=== PATIENT | male | born 1960 | race Caucasian/White ===

== ENCOUNTER 2019-01-11 10:27 | Inpatient (IN) | payer BC ==
[~2019-01-11] VITALS: Ht 177.8 cm; Wt 108.9 kg
[2019-01-11 10:35] VITALS: Ht 177.8 cm; Wt 108.9 kg
--- NOTE | 2019-01-11 10:35 | NUR ---
RECEIVED PATIENT TO ROOM 9, BIBA PER REPORT PATIENT C/O CHEST PAIN 2 HOURS AGO WHILE DRIVING. NITRO X 2, ZOFRAN 4 MG GIVEN IN THE FIELD, HEPLOCK ON RIGHT FOREARM 20 GAUGE INITIATED IN THE FILED. PATIENT IS AAO X 4 (NAME, DATE, TIME AND CONDITION). EYES - KRISTY. MUCUS - PINK. SR ON MONITOR, H=72. LUNGS - CTA. BS PRESENT X 4 QUADRANTS. B/L UPPER AND LOWER EXT PULSES PALPABLE. PATIENT DENIES ANY CHEST PAIN AT THIS TIME. 12 LEAD EKG AT BEDSIDE NOW../JUL RN
--- NOTE | 2019-01-11 10:51 | NUR ---
DR PATEL AT BEDSIDE FOR EVAL AT THIS TIME, APR RN AT BEDSIDE MANAGER COMMUNICATION.//APR RN
[2019-01-11 11:12] LABS: PLATELET COUNT 138 x10^3mcL (130-400); RED CELL DISTRIBUTION WIDTH 12.2 % (11.5-14.5)
[2019-01-11 11:13] LABS: BASOPHIL % 0 % (0-2)
[2019-01-11 11:38] LABS: CALCIUM 7.9 mg/dL (8.5-10.1); CARBON DIOXIDE 26.5 mmol/L (21-32); CHLORIDE SERUM 106 mmol/L (98-107); CREATININE SERUM 1.2 mg/dL (0.7-1.3); GFR1 > 60 mL/min; GLUCOSE SERUM 156 mg/dL (74-106); POTASSIUM SERUM 3.7 mmol/L (3.5-5.1); SODIUM SERUM 141 mmol/L (136-145)
[2019-01-11 11:48] LABS: ALBUMIN 3.6 g/dL (3.4-5.0); ALKALINE PHOSPHATASE 74 U/L (46-116); ALT/SGPT 38 U/L (16-63); AST/SGOT 27 U/L (15-37); BILIRUBIN TOTAL 1.06 mg/dL (0.20-1.00); CHOLESTEROL 143 mg/dL (<200); HDL CHOLESTEROL 40 mg/dL (40-60); T4(THYROXINE) 8.8 ug/dL (4.7-13.3)
[2019-01-11 11:50] LABS: LIPASE 1853 IU/L (73-393); TOTAL PROTEIN, SERUM 6.1 g/dL (6.4-8.2)
[2019-01-11 13:50] LABS: CHOLESTEROL/HDL RATIO 3.8
[2019-01-11 14:13] LABS: UA SPECIFIC GRAVITY 1.025 (1.005-1.035); microscopic required? YES; urine erythrocyte NEGATIVE (NEGATIVE)
--- NOTE | 2019-01-11 14:15 | NUR ---
REPORT CALLED TO KIT MERAZ EXT [phone] FOR ADMISSION TO ROOM 208B. PATIENT AND FAMILY MADE AWARE OF TRANSFER/ADMISSION TO 208B.//APR RN
[2019-01-11 14:30] LABS: AMPHETAMINE QUAL UR NONE DETECTED (See below)
--- NOTE | 2019-01-11 14:30 | NUR ---
[facility] ACCOMPANIED BY RN AND TRANSPORTER. PT A/A/O X 4, CALM, COOPERATIVE, C/O CONSTANT THROBBING H/A 3/10; WEARS GLASSES (W/ PT). AMBULATORY, NO GAIT OR BALANCE IMPAIRMENT NOTED WHEN WALKING FROM GUERNEY TO BED. ON TELE # 4, NSR, C/O DIZZINESS WHEN STANDING, DENIES CHEST PAIN OR DISCOMFORT AT THIS TIME. SCD BY BEDSIDE. NO ACUTE RESPIRATORY DISTRESS NOTED. ABD SOFT, ROUND, TENDERNESS UPON PALPATION TO LUQ (CONSTANT BURNING SENSATION, 3/10, NOT EXACERBATED BY ANYTHING, RELIEVED BY PAIN MEDICATIONS), TYMPANY UPON PERCUSSION TO QUADS 1 AND 4, NORMOACTIVE BOWEL SOUNDS X 4 QUADS, LAST BM 01/10/19, FORMED. VOIDS FREELY, NO DYSURIA, C/O DARK ORANGE URINE. IV SITE RFA 2OG, CDI. ORIENTED PT TO ROOM, BED CONTROLS, CALL LIGHT SYSTEM. SIDE RAILS UP X 2, BED IN LOW POSITION. WILL ENDORSE TO KIT JUSTIN.
--- NOTE | 2019-01-11 15:15 | NUR ---
PT C/O NAUSEA AND "BURNING IN STOMACH". [facility] NOTIFIED AND RECIEVED NEW ORDER FOR ZOFRAN 4MG IV EVERY 8 HOURS PRN AND ABD US PENDING. WILL CARRY OUT.
[2019-01-11 15:19] VITALS: BP 110/59
--- NOTE | 2019-01-11 15:52 | NUR ---
ADMINISTERED ZOFRAN AND MORPHINE PER EMAR FOR C/O NAUSEA AND 7/10 ABD PAIN. PT CURRENTLY GETTING ABD US DONE AT BED. WILL MONITOR.
--- NOTE | 2019-01-11 18:11 | NUR ---
PT STABLE AT THIS TIME WITH NO C/O DISTRESS. ALL CARES TOLERATED WELL. VS WNL. NO SOB NOTED.TELE#4 CONNECTED TO PT, DENIES ANY CP OR PRESSURE AT THIS TIME. SALINE LOCK TO RFA INTACT AND PATENT WITH NO REDNESS OR INFLAMMATION NOTED. SAFETY PRECAUTIONS IN PLACE, CALL LIGHT WITHIN REACH, WILL ENDORSE CARE TO ONCOMING NIGHT NURSE.
--- NOTE | 2019-01-11 19:20 | NUR ---
RECEIVED PT IN BED AWAKE, ALERT,ORIENTED X4. NO SOB ON ROOM AIR. HE DENIED HAVING CHEST PAIN AT THIS TIME. NO C/O HEADACHE AND DIZZINESS. NO FACIAL DROOP. BOWEL SOUNDS ACTIVE. NO C/O ABDL PAIN. NO C/O DYSURIA. W/ HL TO RTFA. CALL LIGHT W/IN REACH.
[2019-01-11 21:03] VITALS: BP 104/57
--- NOTE | 2019-01-11 21:04 | NUR ---
PT C/O ABDL PAIN 08/03 AND REQUESTED FOR PAIN MED. MORPHINE SULFATE 1 MG IV GIVEN.
--- NOTE | 2019-01-11 21:09 | NUR ---
XWWO=505.4. TYLENOL 650 MG PO GIVEN.
--- NOTE | 2019-01-11 22:25 | NUR ---
TEMP RECHECKED= 101.6 AFTER TYLENOL WAS GIVEN. COOLING MEASURES IMPLEMENTED.
--- NOTE | 2019-01-11 23:22 | NUR ---
TEMP RECHECKED=99.2 .
--- NOTE | 2019-01-11 23:26 | NUR ---
INFORMED DR. BROWN THAT PT HAD FEVER OF 100.4 AND 101.6 AND W/ LATEST TEMP OF 99.2 .
[2019-01-12 04:30] VITALS: BP 94/54
--- NOTE | 2019-01-12 06:21 | NUR ---
PT RESTING QUIETLY IN BED. HE SLEPT AT LONG INTERVALS. HE HAD NO C/O CHEST PAIN. HE WAS MEDICATED FOR MOD. ABDL PAIN X1. NO C/O N/V. LATEST TEMP=99.6. ALL NEEDS ATTENDED TO.
[2019-01-12 06:32] LABS: RED CELL DISTRIBUTION WIDTH 12.8 % (11.5-14.5)
[2019-01-12 06:51] LABS: CALCIUM 7.4 mg/dL (8.5-10.1); CARBON DIOXIDE 30.4 mmol/L (21-32); CREATININE SERUM 1.4 mg/dL (0.7-1.3); POTASSIUM SERUM 4.2 mmol/L (3.5-5.1)
--- NOTE | 2019-01-12 07:00 | NUR ---
RECIEVED PT SITTING UP IN BED WITH NO C/O DISTRESS. DENIES CP OR PRESSURE BUT REPORTS SLIGHT WAGNER. WILL MEDICATED WITH TYLENOL PER EMAR. PT A/O X4 WITH NO WAGNER OR DIZZINESS. TELE #4 CONNECTED TO PT. NSR. SALINE LOCK TO RFA INTACT AND PATENT WITH NO REDNESS OR INFLAMMATION. SAFETY PRECAUTIONS IN PLACE, CALL LIGHT WITHIN REACH, WILL MONITOR.
[2019-01-12 08:29] LABS: BASOPHIL % 0 % (0-2)
[2019-01-12 08:30] LABS: PLATELET COUNT 147 x10^3mcL (130-400)
[2019-01-12 09:00] VITALS: BP 111/63
--- NOTE | 2019-01-12 09:00 | NUR ---
TYLENOL GIVEN PER EMAR FOR C/O 11/02 WAGNER, WILL REASSESS.
--- NOTE | 2019-01-12 09:22 | NUR ---
TYLENOL GIVEN PER EMAR FOR C/O 11/02 WAGNER, WILL REASSESS.
[2019-01-12 11:36] LABS: BILIRUBIN DIRECT 0.15 mg/dL (0.0-0.2); BILIRUBIN TOTAL 0.6 mg/dL (0.20-1.00)
[2019-01-12 11:40] LABS: TOTAL PROTEIN, SERUM 5.6 g/dL (6.4-8.2)
--- NOTE | 2019-01-12 12:00 | NUR ---
PT STABLE WITH NOC/O PAIN OR DISTRESS. WILL MONITOR.
[2019-01-12] MEDS ORDERED: PROTONIX20 MG PO (12:29)
[2019-01-12 12:35] VITALS: BP 123/69
[2019-01-12 15:03] VITALS: BP 123/69
[2019-01-12 16:05] VITALS: BP 122/69
--- NOTE | 2019-01-12 16:47 | NUR ---
PT STABLE WITH NO C/O PAIN OR DISTRESS. SAFETY PRECAUTIONS IN PLACE, CALL LIGHT WITHIN REAH, WILL MONITOR.
--- NOTE | 2019-01-12 18:21 | NUR ---
PT STABLE TO DISCHARGE PER MD ORDER. PT CLEARED BY BRIM POUNCING MACHINE OPERATOR. ALL CARES TOLERATED WELL. ALL DISCHARGE INTRUCTIONS, EDUCATION, AND PRESCRIPTIONS GIVEN TO PT AND HE VERBALIZES UNDERSTANDING. IV REMOVED WITH CATHETER INTACT AND NO REDNESS OR INFLAMMATION NOTED. VS WNL AND NO DISTRESS NOTED. ID BAND REMOVED FROM PT. PT ESCORTED DOWN TO LOBBY BY DORA.
== END 2019-01-12 18:25 | disposition home or self-care (01) | DRG 440 ==
LOC: ED 10:27 → DU 13:23
PROVIDERS: Emergency Medicine; Internal Medicine Gastroenterology; ADMIT Internal Medicine
DX: K85.90 Acute pancreatitis without necrosis or infection, unspecified (principal); E78.00 Pure hypercholesterolemia, unspecified; E66.9 Obesity, unspecified; Z79.899 Other long term (current) drug therapy; E78.5 Hyperlipidemia, unspecified; K21.9 Gastro-esophageal reflux disease without esophagitis; I12.9 Hypertensive chronic kidney disease with stage 1 through stage 4 chronic kidney disease, or unspecified chronic kidney disease; N18.3 Chronic kidney disease, stage 3 (moderate); K42.9 Umbilical hernia without obstruction or gangrene; Z82.49 Family history of ischemic heart disease and other diseases of the circulatory system; Z68.34 Body mass index [BMI] 34.0-34.9, adult
CPT/HCPCS: 83880; 85378; G0378; J2270; J2405; J3490; Q0092